=== PATIENT | female | born 1965 | race Caucasian/White ===

== ENCOUNTER 2020-07-11 09:40 | Outpatient (CLI) | payer BC, SELFPAY ==
[2020-07-11 10:18] LABS: SARS-CoV-2 Ag Positive (Negative)
== END 2020-07-11 09:41 | disposition home or self-care (01) ==
LOC: CHSLAB 09:45
PROVIDERS: PCP Family Medicine; Visit Provider Family Medicine
DX: U07.1 COVID-19 (principal)
CPT/HCPCS: 87426